=== PATIENT | female | born 1995 | race Caucasian/White ===

== ENCOUNTER 2024-10-12 16:12 | Emergency (ER) | payer OTHER ==
[~2024-10-12] VITALS: Ht 154.9 cm; Wt 51.0 kg
[2024-10-12 16:20] VITALS: TEMP 36.7; O2SAT 98
[2024-10-12] MEDS: ACETAMINOPHEN 325MG TABLET PO ONE (20:36)
[2024-10-12 20:51] VITALS: BP 117/72; PULSE 61; RESP 18; O2SAT 100
== END 2024-10-12 22:16 | disposition home or self-care (01) ==
LOC: ER 16:12
DX: S01.21XA Laceration without foreign body of nose, initial encounter (principal); S01.81XA Laceration without foreign body of other part of head, initial encounter; Z79.899 Other long term (current) drug therapy; W22.8XXA Striking against or struck by other objects, initial encounter; Y93.89 Activity, other specified; Y92.89 Other specified places as the place of occurrence of the external cause; Y99.8 Other external cause status
CPT/HCPCS: 12011; 99282; Z7610